=== PATIENT | male | born 1955 | race Caucasian/White ===

== ENCOUNTER 2024-04-25 08:05 | Outpatient (CLI) | payer MEDICARE | END 2024-04-25 08:06 | disposition home or self-care (01) | LOC: CSHSLEEP 08:05 | PROVIDERS: ATTEND Family Medicine | DX: R06.3 Periodic breathing (principal); R53.83 Other fatigue; I10 Essential (primary) hypertension | CPT/HCPCS: 95800 ==

== ENCOUNTER 2024-05-23 08:37 | Outpatient (CLI) | payer MEDICARE | END 2024-05-23 08:38 | disposition home or self-care (01) | LOC: CSHSLEEP 08:37 | PROVIDERS: ATTEND Family Medicine | DX: G47.33 Obstructive sleep apnea (adult) (pediatric) (principal); R53.83 Other fatigue; I10 Essential (primary) hypertension; G47.31 Primary central sleep apnea | CPT/HCPCS: 95811 ==